=== PATIENT | female | born 1955 | race Caucasian/White ===

== ENCOUNTER 2018-12-13 15:32 | Inpatient (IN) | payer MEDICARE, OTHER ==
[~2018-12-13] VITALS: Ht 167.6 cm; Wt 118.8 kg
--- NOTE | 2018-12-13 15:45 | NUR ---
BIBPA FROM US RENAL DUE TO ALTERED MENTAL STATUS, PATIENT RESPONSIVE TO VERBAL AND TACTILE STIMULI. PATIENT WITH TRACHE, WITH A TRACHE MASK ON 2LPM AND SPO2 100%. HD CATHETER ON LEFT CHEST WALL. PATIENT NOTED WITH MULTIPLE WOUNDS. WILL CONTINUE TO MONITOR. AWAITING FOR MD FOR EVAL.
--- NOTE | 2018-12-13 16:27 | NUR ---
ATTEMPTED TO INSERT PIV MULTIPLE TIMES, UNSUCCESSFUL. INSERTED A STRAIGHT CATHETER, NO URINE OUTPUT. DR. RIVERA MADE AWARE. NO NEW ORDER AT THIS TIME.
[2018-12-13 16:29] LABS: BASOPHILS # (AUTO) 0.1 /CMM (0.0-0.2); BASOPHILS % (AUTO) 0.7 % (0.0-2.0); EOSINOPHILS % (AUTO) 8.6 % (0.0-6.0); HEMATOCRIT 30 % (33-45); HEMOGLOBIN 9.6 g/dL (11.5-14.8); LYMPHOCYTES # (AUTO) 2.1 /CMM (0.8-4.8); LYMPHOCYTES % (AUTO) 27.5 % (20.0-44.0); MEAN CORPUSCULAR HGB CONC 32 g/dl (31.0-36.0); MEAN CORPUSCULAR VOLUME 77 fL (82-100); MONOCYTES # (AUTO) 0.9 /CMM (0.1-1.30); NEUTROPHILS # (AUTO) 3.9 /CMM (1.8-8.9); NEUTROPHILS % (AUTO) 51.2 % (43.0-81.0); PLATELET COUNT (AUTO) 301 /CMM (150-450); RED BLOOD CELL COUNT(AUTO) 3.93 MIL/uL (4.0-5.2); WHITE BLOOD COUNT (AUTO) 7.5 K/uL (4.3-11.0)
[2018-12-13 16:38] LABS: CALCIUM, SERUM 10.1 mg/dL (8.5-10.1); CARBON DIOXIDE 28 mmol/L (21-32); CHLORIDE 90 mmol/L (98-107); GLUCOSE 168 mg/dL (74-106); POTASSIUM 4.2 mmol/L (3.5-5.1); SODIUM SERUM 128 mmol/L (136-145); UREA NITROGEN, BLOOD 77 mg/dL (7-18)
[2018-12-13 16:42] LABS: CREATININE 8.3 mg/dL (0.6-1.3)
[2018-12-13 16:52] LABS: ALANINE AMINOTRANSFERASE 33 U/L (12-78); ALBUMIN 3.8 g/dL (3.4-5.0); ALKALINE PHOSPHATASE 236 U/L (46-116); ASPARTATE AMINOTRANSFERASE 37 U/L (15-37); B-TYPE NATRIURETIC PEPTIDE 7173 PG/ML (0-125); BILIRUBIN,DIRECT 0.2 mg/dL (0.0-0.2); BILIRUBIN,TOTAL 0.5 mg/dL (0.2-1.0); LIPASE 246 U/L (73-393)
[2018-12-13] MEDS ORDERED: MIDAZOLAM HCL 2 MG/2ML VIAL ONE ×2 (16:55→18:40)
[2018-12-13] MEDS ORDERED: MIDAZOLAM HCL 5 MG/5ML VIAL IV ONE (17:00)
[2018-12-13] MEDS ORDERED: MIDAZOLAM HCL 2 MG/2ML VIAL IM ONE (17:00)
[2018-12-13] MEDS: MIDAZOLAM HCL 2 MG/2ML VIAL IM ONE ×2 (17:15→18:45)
--- NOTE | 2018-12-13 17:16 | NUR ---
PATIENT BROUGHT BACK BY [facility] COOKER S/P CT SCAN OF HEAD. PATIENT IS ASLEEP AT THIS TIME. WILL CONTINUE TO MONITOR.
[2018-12-13 17:26] LABS: THYROID STIMULATING HORMONE 1.057 uIU/mL (0.358-3.74)
--- NOTE | 2018-12-13 18:45 | NUR ---
PATIENT REMOVED TRACHE. RT CALLED. PATIENT CURRENTLY SATING 100% IN ROOM AIR. DR. RIVERA MADE AWARE AND ORDERED TO GIVE VERSED 2MG. ORDER CARRIED OUT.
--- NOTE | 2018-12-13 18:50 | NUR ---
RT CAME AND REPLACED TRACHE. PATIENT TOLERATED PROCEDURE. RECEIVED ORDER FROM DR. RIVERA TO APPLY ASHLEY. SOFT WRIST RESTRAINTS TO PREVENT PATIENT FROM PULLING OUT TRACHE AGAIN. ORDER NOTED AND CARRIED OUT.
--- NOTE | 2018-12-13 18:51 | NUR ---
CALLED [facility] POWERTRAIN DESIGN ENGINEER WAS PAGED.
[2018-12-13] MEDS ORDERED: Z GUARD REMEDY 2 OZ OINT TP PRN (20:00)
[2018-12-13] MEDS ORDERED: ACETAMINOPHEN 325 MG TABLET PO PRN (20:00)
[2018-12-13] MEDS ORDERED: MAG HYDROX/AL HYDROX/SIMETH 30 ML UDC PO PRN (20:00)
[2018-12-13] MEDS ORDERED: ENOXAPARIN SODIUM 30 MG/0.3 ML DISP.SYRIN SQ SCH (20:00)
[2018-12-13] MEDS ORDERED: HYDROCODONE/APAP 5/325MG 1 EACH TABLET PO PRN (20:00)
[2018-12-13] MEDS ORDERED: MAGNESIUM HYDROXIDE 30 ML UDC PO PRN (20:00)
[2018-12-13] MEDS ORDERED: ONDANSETRON HCL/PF 4 MG/2 ML VIAL IVP PRN (20:00)
--- NOTE | 2018-12-13 20:34 | NUR ---
REPORT GIVEN TO RICK LYN FOR SANTO
[2018-12-13 21:00] VITALS: BP 128/98
[2018-12-13] MEDS ORDERED: HEPARIN SODIUM, PORCINE 5000 UNITS/1 ML VIAL SQ SCH (21:00)
--- NOTE | 2018-12-13 21:30 | NUR ---
HOUSING GRANT ANALYST NOTE: RECEIVED PATIENT FROM ER, NO ACUTE DISTRESS NOTED. BREATHING EVEN AND UNLABORED, NO SOB NOTED. TRACH IN PLACE. PERMACATH TO LEFT CHEST WALL IN PLACE. NOTED WITH OLD AV SHUNT TO FELIPE WITH POSITIVE BRUIT. PATIENT WITH BILATERAL WRIST RESTRAINTS SINCE PATIENT TRYING TO PULL AT TRACH. G-TUBE IN PLACE, CLAMPED AT THIS TIME WITH NO RESIDUAL. BED LOCKED AND IN LOWEST POSITION, CALL LIGHT IN REACH. WILL CONTINUE TO MONITOR.
[2018-12-13] MEDS: HEPARIN SODIUM, PORCINE 5000 UNITS/1 ML VIAL SQ SCH (21:53)
[2018-12-14] VITALS: BP 122/76
[2018-12-14] MEDS ORDERED: CEFTRIAXONE 2 G in IV NS 0.9% 100 ML IV SCH (01:30)
[2018-12-14] MEDS ORDERED: AZITHROMYCIN 250 MG TABLET PO SCH (01:30)
[2018-12-14] MEDS: AZITHROMYCIN 250 MG TABLET GT SCH ×2 (02:24→20:46)
--- NOTE | 2018-12-14 03:00 | NUR ---
OPTICAL MODEL MAKER AND TESTER NOTE: PATIENT WITH ORDER FOR IV ROCEPHIN, INFORMED HUMAN RESOURCES TRAINEE NIC GOOD NP THAT PATIENT DOES NOT HAVE IV ACCESS. PATIENT HAS PERMACATH SITE FOR HD AND UNABLE TO ACCESS SITE PER CHARGE NURSE. SARAH LUCERO OK TO HAVE PATIENT TO HAVE MIDLINE. INFORMED NURSING MANAGER IT TRAINING FOR MIDLINE NURSE, THERE IS NO NURSE TONIGHT WILL INFORM DURING DAYSHIFT. IV ANTIBIOTIC NOT GIVEN AT THIS TIME. WILL CONTINUE TO MONITOR. Addendum: 12/14/18 at 0642 by RIKI CURTIS RN INFORMED THAT PATIENT MEDICATIONS FROM FACILITY WILL BE ENTERED IN AND TO BE REVIEWED ONCE ENTERED. AND WHAT GTUBE FEEDING PATIENT WAS ON AT FACILITY. SARAH LUCERO WILL LOOK AT [facility].
[2018-12-14 04:00] VITALS: BP 117/75
[2018-12-14] MEDS ORDERED: DOCU100T2 GT (04:17)
[2018-12-14] MEDS ORDERED: EPOE1VIA7 IJ (04:17)
[2018-12-14] MEDS ORDERED: FOLI1TAB16 GT (04:17)
[2018-12-14] MEDS ORDERED: FOLI0.8T2 GT (04:17)
[2018-12-14] MEDS ORDERED: ATOR40TA GT (04:17)
[2018-12-14] MEDS ORDERED: VITA0.4T5 GT (04:17)
[2018-12-14] MEDS ORDERED: PARI2CAP3 GT (04:17)
[2018-12-14] MEDS ORDERED: SENN-168 GT (04:17)
[2018-12-14] MEDS ORDERED: MIDO10TA GT (04:17)
[2018-12-14] MEDS ORDERED: ASPI-605 GT (04:17)
[2018-12-14] MEDS ORDERED: POLY90PO GT (04:17)
[2018-12-14] MEDS ORDERED: ACID1TAB12 GT (04:17)
[2018-12-14] MEDS ORDERED: ACET160S GT (04:17)
[2018-12-14] MEDS ORDERED: FAMO20TA8 GT (04:17)
[2018-12-14] MEDS ORDERED: VANC500V GT (04:18)
[2018-12-14] MEDS ORDERED: IPRA0.2S49 IH ×2 (04:48)
[2018-12-14] MEDS ORDERED: INSU100I4 SQ (04:48)
--- NOTE | 2018-12-14 06:20 | NUR ---
LUNCH WAGON OPERATOR NOTE: PATIENT RESTING IN BED, NO ACUTE DISTRESS NOTED. BREATHING EVEN AND UNLABORED, NO SOB NOTED. TRACH IN PLACE. PERMACATH TO LEFT CHEST WALL IN PLACE. G-TUBE IN PLACE. BED LOCKED AND IN LOWEST POSITION, CALL LIGHT IN REACH. WILL ENDORSE TO DAY NURSE TO CONTINUE WITH PLAN OF CARE.
--- NOTE | 2018-12-14 08:00 | NUR ---
ms rn received on bed, awake, non verbal patient on trach to aerosol, no sob noted, came in w/ dx of ams, hd patient, on g tube, bed bound w/o iv access, will monitor patient.
[2018-12-14 08:27] VITALS: BP 135/67
[2018-12-14] MEDS: PANTOPRAZOLE 40 MG VIAL IV SCH (10:23)
[2018-12-14] MEDS: HEPARIN SODIUM, PORCINE 5000 UNITS/1 ML VIAL SQ SCH ×2 (10:24→20:47)
--- NOTE | 2018-12-14 10:57 | NUR ---
WOUND CARE CONSULT: PT PRESENTS WITH MULTIPLE DRY ESCHARS AND CALLUSES TO BILATERAL FEET AND INCONTINENCE ASSOCIATED SKIN DAMAGE TO BILATERAL BUTTOCKS, PRESENT ON ADMISSION. PER DR BOYCE, PLASTIC SURGERY AND PODIATRY CONSULTS WERE MADE. RECOMMENDATIONS MADE FOR SKIN PROTECTION. DISCUSSED WITH NURSING STAFF INCLUDING MARKETING DIRECTOR. FIRST STEP LOW AIRLOSS MATTRESS ORDERED. WILL SEE PRN. IN AGREEMENT WITH PLAN OF CARE.
[2018-12-14] MEDS ORDERED: EPOETIN ALFA (10,000 UNIT) 10,000 UNIT/ML VIAL IV ONE (11:00)
--- NOTE | 2018-12-14 11:00 | NUR ---
MS RN WAS SEEN BY DR. BOYCE, REMINDED TO DO MEDICATION RECONCILIATION.
[2018-12-14] MEDS: CEFTRIAXONE 2 G in IV NS 0.9% 100 ML IV SCH (13:17)
[2018-12-14 13:28] LABS: BASOPHILS % (AUTO) 0.7 % (0.0-2.0); EOSINOPHILS % (AUTO) 7.4 % (0.0-6.0); HEMATOCRIT 25 % (33-45); LYMPHOCYTES # (AUTO) 1.6 /CMM (0.8-4.8); LYMPHOCYTES % (AUTO) 25.1 % (20.0-44.0); MEAN CORPUSCULAR HGB CONC 32 g/dl (31.0-36.0); MEAN CORPUSCULAR VOLUME 77 fL (82-100); MONOCYTES # (AUTO) 0.7 /CMM (0.1-1.30); MONOCYTES % (AUTO) 11.3 % (2.0-12.0); NEUTROPHILS # (AUTO) 3.6 /CMM (1.8-8.9); NEUTROPHILS % (AUTO) 55.5 % (43.0-81.0); PLATELET COUNT (AUTO) 212 /CMM (150-450); RED BLOOD CELL COUNT(AUTO) 3.24 MIL/uL (4.0-5.2); WHITE BLOOD COUNT (AUTO) 6.5 K/uL (4.3-11.0)
[2018-12-14 14:06] LABS: CALCIUM, SERUM 9.2 mg/dL (8.5-10.1); CREATININE 5.5 mg/dL (0.6-1.3); MAGNESIUM 2.7 mg/dL (1.8-2.4); PHOSPHORUS 3.9 mg/dL (2.5-4.9); POTASSIUM 3.5 mmol/L (3.5-5.1)
--- NOTE | 2018-12-14 14:30 | NUR ---
MS RICK HD DONE - 300ML OUTPUT.
[2018-12-14 15:05] LABS: THYROID STIMULATING HORMONE 1.013 uIU/mL (0.358-3.74)
[2018-12-14 16:11] VITALS: BP 129/81
[2018-12-14] MEDS ORDERED: NEPRO 1,000 ML BOTTLE GT PRN (18:30)
--- NOTE | 2018-12-14 19:00 | NUR ---
MS RN ON BED, NO DISTRESS NOTED,
--- NOTE | 2018-12-14 19:20 | NUR ---
RN Notes Received patient awake, HOB elevated with trach on cool aerosol at 5 LPM and tolerated well. Patient alert and oriented x1, noted constantly moving in bed. Bilateral soft wrist restraint noted with good circulation noted. Mid line on left upper forearm patent and intact. GT intact with ongoing GT feeding at 45ml/hr. and tolerated well. kept patient clean and dry. Isolation precaution observed. Will continue to monitor patient.
--- NOTE | 2018-12-14 21:55 | NUR ---
RN Notes Patient is restless and moaning, [place] 5/325 mg tab given and bed bath given. Will continue to monitor.
[2018-12-14 22:00] VITALS: BP 98/57
[2018-12-15] MEDS ORDERED: IPRATROPIUM NEB FS 0.5 MG/2.5 ML AMPUL.NEB IH PRN ×2 (01:30→04:58)
[2018-12-15] MEDS: IPRATROPIUM NEB FS 0.5 MG/2.5 ML AMPUL.NEB IH SCH ×4 (03:00→20:12)
[2018-12-15] MEDS ORDERED: INSULIN ASPART/LISPRO 100 UNIT/ML CARTRIDGE SQ SCH (06:00)
[2018-12-15] MEDS ORDERED: INSULIN ASPART 100 UNIT SQ SCH (06:00)
--- NOTE | 2018-12-15 06:00 | NUR ---
RN Notes Blood sugar checked 141 mg/dl, no coverage given because medicine is not available at this time.
--- NOTE | 2018-12-15 07:29 | NUR ---
MS RN OPENING NOTES Received patient awake in bed in no acute signs of distress. HOB elevated. Patient alert and oriented x1, confused and constantly moving in bed. Pt with trach on cool aerosol @ 5 LPM, tolerating well. Bilateral soft wrist restraint in placed. good circulation and peripheral pulses noted. Isolation precaution maintained. Mid line on FELIPE patent and intact. GT in place and patent, GT feeding of nephro at 45ml/hr in progress and tolerating well. all safety measures in place. bed in low locked position with SR up x3. call light in reach. Will continue to monitor patient accordingly.
--- NOTE | 2018-12-15 07:40 | NUR ---
RN Notes Patients stable overnight, afebrile. Kept pain at tolerable level.Kept patient clean and dry, turned and repositioned per protocol. Fall precaution observed. all needs attended. Will continue to monitor.
[2018-12-15] MEDS ORDERED: HYDROCODONE/APAP 5/325MG 1 EACH TABLET GT PRN (07:57)
[2018-12-15] MEDS ORDERED: MAG HYDROX/AL HYDROX/SIMETH 30 ML UDC GT PRN (07:57)
[2018-12-15] MEDS ORDERED: MAGNESIUM HYDROXIDE 30 ML UDC GT PRN (07:58)
[2018-12-15 08:00] VITALS: BP 155/76
[2018-12-15] MEDS ORDERED: ACETAMINOPHEN 650 MG/20.3 ML UDC GT PRN (08:00)
[2018-12-15] MEDS: MIDODRINE HCL (5MG) 5 MG TABLET GT SCH (09:00)
[2018-12-15] MEDS ORDERED: VANCOMYCIN 500 MG VIAL GT SCH (09:00)
[2018-12-15] MEDS: HEPARIN SODIUM, PORCINE 5000 UNITS/1 ML VIAL SQ SCH ×2 (09:34→21:48)
[2018-12-15] MEDS: POLYETHYLENE GLYCOL 3350 17 GM POWD.PACK GT SCH (09:37)
[2018-12-15] MEDS: PANTOPRAZOLE 40 MG VIAL IV SCH (09:39)
[2018-12-15] MEDS: VIT B CMPLX 3/FA/VIT C/BIOTIN 1 TAB TABLET GT SCH (09:40)
[2018-12-15] MEDS: ASPIRIN 81 MG TAB.CHEW GT SCH (09:42)
[2018-12-15] MEDS: ACIDOPHILUS/BULGARICUS 1 EACH TAB.CHEW GT SCH (09:42)
[2018-12-15] MEDS: DOCUSATE SODIUM LIQ 100 MG/10 ML UDC GT SCH ×2 (09:42→17:13)
[2018-12-15] MEDS: FOLIC ACID 1 MG TABLET GT SCH (09:42)
[2018-12-15] MEDS: FAMOTIDINE (20 MG) 20 MG TABLET GT SCH ×2 (09:42→17:13)
[2018-12-15] MEDS: VITAMIN B COMP W-C 1 TAB TABLET GT SCH (09:43)
[2018-12-15] MEDS: ACETAMINOPHEN 650 MG/20.3 ML UDC GT SCH (09:46)
[2018-12-15] MEDS ORDERED: VANCOMYCIN HCL 125 MG/2.5 ML ORAL.SUSP GT SCH (09:49)
[2018-12-15] MEDS ORDERED: DEXTROSE 50%-WATER 50 ML DISP.SYRIN IV PRN (12:30)
[2018-12-15] MEDS ORDERED: LORAZEPAM INJ 2 MG/ML VIAL IV ONE (12:30)
[2018-12-15] MEDS: CEFTRIAXONE 2 G in IV NS 0.9% 100 ML IV SCH (12:55)
[2018-12-15] MEDS ORDERED: EPOETIN ALFA (10,000 UNIT) 10,000 UNIT/ML VIAL SQ SCH (14:00)
[2018-12-15 14:53] LABS: BASOPHILS # (AUTO) 0.1 /CMM (0.0-0.2); BASOPHILS % (AUTO) 0.8 % (0.0-2.0); EOSINOPHILS % (AUTO) 8.2 % (0.0-6.0); HEMATOCRIT 31 % (33-45); HEMOGLOBIN 9.7 g/dL (11.5-14.8); LYMPHOCYTES % (AUTO) 24.4 % (20.0-44.0); MEAN CORPUSCULAR HGB CONC 31 g/dl (31.0-36.0); MEAN CORPUSCULAR VOLUME 78 fL (82-100); MONOCYTES # (AUTO) 1.2 /CMM (0.1-1.30); MONOCYTES % (AUTO) 14.4 % (2.0-12.0); NEUTROPHILS # (AUTO) 4.2 /CMM (1.8-8.9); NEUTROPHILS % (AUTO) 52.2 % (43.0-81.0); PLATELET COUNT (AUTO) 286 /CMM (150-450); RED BLOOD CELL COUNT(AUTO) 4.02 MIL/uL (4.0-5.2); WHITE BLOOD COUNT (AUTO) 8.1 K/uL (4.3-11.0)
[2018-12-15 15:32] LABS: CALCIUM, SERUM 9.8 mg/dL (8.5-10.1)
[2018-12-15] MEDS: VANCOMYCIN HCL 125 MG/2.5 ML ORAL.SUSP GT SCH (15:39)
[2018-12-15 15:47] LABS: CREATININE 7.7 mg/dL (0.6-1.3)
[2018-12-15 16:00] VITALS: BP 117/89
--- NOTE | 2018-12-15 16:25 | NUR ---
RN NOTES CALLED [facility] AT [phone] TO VERIFY EPOGEN ORDER. SPOKE TO NURSE LOAD TEST MECHANIC VIJAY AND SAID THAT PT IS TAKING EPOGEN 10,000 UN 3X A WEEK ON , WEDNESDAY AND SAT. DOSAGE RELAYED TO PHARMACIST COCO.
[2018-12-15] MEDS: ATORVASTATIN 40 MG TABLET GT SCH (17:13)
[2018-12-15] MEDS: INSULIN ASPART/LISPRO 100 UNIT/ML CARTRIDGE SQ PRN ×2 (17:50→21:53)
[2018-12-15] MEDS: BLOOD SUGAR DIAGNOSTIC 1 EACH STRIP IN SCH ×2 (17:51→21:49)
[2018-12-15] MEDS: NEPRO 1,000 ML BOTTLE GT PRN (18:34)
--- NOTE | 2018-12-15 18:48 | NUR ---
RN NOTES PATIENT BLOOD TRANSFUSION FINISHED WITH NO ADVERSE REACTIONS NOTED. AT BEDSIDE AND AWARE.COMPUTER NOT LETTING TO END BLOOD TRANSFUSION. POST BLOOD TRANSFUSION V/S: BP 122/79, R 16, P 96 AND T 98f. WILL CONTINUE TO MONITOR.
--- NOTE | 2018-12-15 19:42 | NUR ---
MS RN CLOSING NOTES Patient in bed awake and lying at modertae high backrest psoition. A/O x1, confused and constantly moving in bed. Bilateral soft wrist restraint in placed, good circulation and peripheral pulses noted. Isolation precaution maintained. Pt with trach on cool aerosol @ 5 LPM, tolerating well. Mid line on FELIPE patent and intact. LCW permacath in place. received call from HD nurse that she will come to HD patient tonight. GT in place and patent, GT feeding of Nephro @ 45ml/hr in progress and tolerating well. Joyner in place and actively draining clear yellow urine to bedside urinary bag, joyner care done. All safety measures in place. Bed in low locked position with SR up x3. Call light in reach. Endorsed to awake overnight monitor nurse for tarun..
--- NOTE | 2018-12-15 19:43 | NUR ---
RN Notes Received patient awake, HOB elevated with trach on cool aerosol at 5 LPM and tolerated well. Patient is verbal with confusion, oriented x1. Bilateral soft wrist restraint with good circulation noted. Mid line on left upper forearm patent and intact. GT intact with ongoing GT feeding at 45ml/hr and tolerated well. Patient constantly moving in bed, safety measures and fall precaution in place. Isolation precaution observed. Will continue to monitor patient.
[2018-12-15 20:39] VITALS: BP 133/69
[2018-12-15] MEDS: MUPIROCIN OINT 2% 22 GM TUBE SCH (21:00)
[2018-12-15] MEDS: AZITHROMYCIN 250 MG TABLET GT SCH (21:45)
[2018-12-15] MEDS: SENNOSIDES 8.6 MG TABLET GT SCH (21:46)
--- NOTE | 2018-12-15 21:59 | NUR ---
RN Notes Patient is restless, moaning and verbalizing her back hurts. [place] 5/325 mg tab given via GT. Will continue to monitor.
[2018-12-15 22:00] VITALS: BP 133/69
[2018-12-16] MEDS: VANCOMYCIN HCL 125 MG/2.5 ML ORAL.SUSP GT SCH ×4 (00:11→17:06)
[2018-12-16] MEDS: IPRATROPIUM NEB FS 0.5 MG/2.5 ML AMPUL.NEB IH SCH ×4 (01:34→20:03)
[2018-12-16] MEDS: BLOOD SUGAR DIAGNOSTIC 1 EACH STRIP IN SCH ×4 (06:56→21:28)
[2018-12-16] MEDS: INSULIN ASPART/LISPRO 100 UNIT/ML CARTRIDGE SQ PRN ×3 (06:58→16:58)
--- NOTE | 2018-12-16 07:30 | NUR ---
MS RN OPENING NOTES RECEIVED PATIENT IN STABLE CONDITION. IN NO APPARENT DISTRESS. BEDSIDE RAILS ARE UPX2. BED IS LOCKED AND LOWERED. CALL LIGHT IS WITHIN REACH. IV LINE IS INTACT AND PATENT. WILL CONTINUE TO MONITOR PATIENT.
--- NOTE | 2018-12-16 07:37 | NUR ---
RN Notes Patient slept on and off overnight. Patient is more verbal and alert .Vital signs stable, afebrile. Had dialysis with 500 ml output and patient tolerated well. Turned and repositioned per protocol. Kept patient clean and dry. All needs attended. Endorsed to morning RN for continuity of care.
[2018-12-16 08:00] VITALS: BP 141/87
[2018-12-16] MEDS: MUPIROCIN OINT 2% 22 GM TUBE SCH ×2 (09:00→21:47)
[2018-12-16] MEDS: MIDODRINE HCL (5MG) 5 MG TABLET GT SCH (09:29)
[2018-12-16] MEDS: ASPIRIN 81 MG TAB.CHEW GT SCH (09:30)
[2018-12-16] MEDS: DOCUSATE SODIUM LIQ 100 MG/10 ML UDC GT SCH ×2 (09:30→16:54)
[2018-12-16] MEDS: PANTOPRAZOLE 40 MG/PACK PACK GT SCH (09:30)
[2018-12-16] MEDS: ACIDOPHILUS/BULGARICUS 1 EACH TAB.CHEW GT SCH (09:30)
[2018-12-16] MEDS: ACETAMINOPHEN 650 MG/20.3 ML UDC GT SCH (09:30)
[2018-12-16] MEDS: FOLIC ACID 1 MG TABLET GT SCH (09:30)
[2018-12-16] MEDS: VITAMIN B COMP W-C 1 TAB TABLET GT SCH (09:31)
[2018-12-16] MEDS: VIT B CMPLX 3/FA/VIT C/BIOTIN 1 TAB TABLET GT SCH (09:31)
[2018-12-16] MEDS: POLYETHYLENE GLYCOL 3350 17 GM POWD.PACK GT SCH (09:31)
[2018-12-16] MEDS: HEPARIN SODIUM, PORCINE 5000 UNITS/1 ML VIAL SQ SCH ×2 (09:32→21:23)
--- NOTE | 2018-12-16 10:11 | NUR ---
CALLED PHARMACY TO PROVIDE BACTROBAN. WILL ADMINISTER WHEN MEDICATION IS AVAILABLE.
[2018-12-16 11:29] LABS: BASOPHILS # (AUTO) 0.1 /CMM (0.0-0.2); HEMATOCRIT 28 % (33-45); HEMOGLOBIN 9.1 g/dL (11.5-14.8); LYMPHOCYTES # (AUTO) 1.4 /CMM (0.8-4.8); LYMPHOCYTES % (AUTO) 18.7 % (20.0-44.0); MEAN CORPUSCULAR HGB CONC 32 g/dl (31.0-36.0); MEAN CORPUSCULAR VOLUME 76 fL (82-100); MONOCYTES # (AUTO) 0.9 /CMM (0.1-1.30); MONOCYTES % (AUTO) 11.7 % (2.0-12.0); NEUTROPHILS # (AUTO) 4.7 /CMM (1.8-8.9); NEUTROPHILS % (AUTO) 61.6 % (43.0-81.0); PLATELET COUNT (AUTO) 247 /CMM (150-450); RED BLOOD CELL COUNT(AUTO) 3.73 MIL/uL (4.0-5.2); WHITE BLOOD COUNT (AUTO) 7.7 K/uL (4.3-11.0)
[2018-12-16] MEDS ORDERED: PARICALCITOL 2 MCG GT SCH (11:30)
[2018-12-16 11:51] LABS: CALCIUM, SERUM 9.6 mg/dL (8.5-10.1); CREATININE 5.7 mg/dL (0.6-1.3); MAGNESIUM 2.7 mg/dL (1.8-2.4); PHOSPHORUS 4.2 mg/dL (2.5-4.9); POTASSIUM 3.6 mmol/L (3.5-5.1)
[2018-12-16] MEDS: CEFTRIAXONE 2 G in IV NS 0.9% 100 ML IV SCH (12:01)
[2018-12-16 16:00] VITALS: BP 119/49
[2018-12-16] MEDS: ATORVASTATIN 40 MG TABLET GT SCH (17:06)
--- NOTE | 2018-12-16 18:03 | NUR ---
MS RN CLOSING NOTES PATIENT IS IN STABLE CONDITION. IN NO APPARENT DISTRESS. BEDSIDE RAILS ARE UPX2. BED IS LOCKED AND LOWERED. CALL LIGHT IS WITHIN REACH. IV LINE IS INTACT AND PATENT. WILL ENDORSE CARE TO DREDGE HAND NURSE FOR SANTO.
--- NOTE | 2018-12-16 19:50 | NUR ---
MS RN NOTE: PATIENT RESTING IN BED, NO ACUTE DISTRESS NOTED. BREATHING EVEN AND UNLABORED, NO SOB NOTED. TRACH IN PLACE WITH COOL AEROSOL. PERMACATH TO LEFT CHEST WALL IN PLACE. MIDLINE TO FELIPE IN PLACE. G-TUBE IN PLACE, WITH NO RESIDUAL INFUSING NEPHRO 45ML/HR, HOB ELEVATED. ISOLATION PRECAUTIONS OBSERVED. BED LOCKED AND IN LOWEST POSITION, CALL LIGHT IN REACH.
[2018-12-16 20:00] VITALS: BP 139/71
[2018-12-16] MEDS: SENNOSIDES 8.6 MG TABLET GT SCH (21:23)
[2018-12-16] MEDS: AZITHROMYCIN 250 MG TABLET GT SCH (21:23)
--- NOTE | 2018-12-16 21:45 | NUR ---
MS RN NOTE: PATIENT BLOOD SUGAR LEVEL 97 MG/DL, NO INSULIN NEEDED PER SLIDING SCALE. NO S/S OF HYPER/HYPOGLYCEMIA NOTED. PATIENT ON G-TUBE FEEDING. WILL CONTINUE TO MONITOR.
[2018-12-17] MEDS: VANCOMYCIN HCL 125 MG/2.5 ML ORAL.SUSP GT SCH ×3 (00:09→11:06)
[2018-12-17] MEDS: NEPRO 1,000 ML BOTTLE GT PRN (00:46)
[2018-12-17] MEDS: IPRATROPIUM NEB FS 0.5 MG/2.5 ML AMPUL.NEB IH SCH ×3 (01:11→13:07)
--- NOTE | 2018-12-17 06:25 | NUR ---
MS RN NOTE: PATIENT RESTING IN BED, NO ACUTE DISTRESS NOTED. BREATHING EVEN AND UNLABORED, NO SOB NOTED. TRACH IN PLACE WITH COOL AEROSOL. PERMACATH TO LEFT CHEST WALL IN PLACE. MIDLINE TO FELIPE IN PLACE. G-TUBE IN PLACE, WITH NO RESIDUAL INFUSING NEPHRO 45ML/HR, HOB ELEVATED. PATIENT BLOOD SUGAR LEVEL 135MG/DL, TO RECEIVE 2 UNITS OF INSULIN PER SLIDING SCALE. ISOLATION PRECAUTIONS OBSERVED. BED LOCKED AND IN LOWEST POSITION, CALL LIGHT IN REACH. WILL ENDORSE TO DAY NURSE TO CONTINUE PLAN OF CARE.
[2018-12-17] MEDS: BLOOD SUGAR DIAGNOSTIC 1 EACH STRIP IN SCH ×2 (06:36→11:06)
[2018-12-17] MEDS: INSULIN ASPART/LISPRO 100 UNIT/ML CARTRIDGE SQ PRN ×2 (06:39→11:12)
[2018-12-17 08:00] VITALS: BP 126/62
[2018-12-17 08:37] VITALS: BP 126/62
[2018-12-17] MEDS: ASPIRIN 81 MG TAB.CHEW GT SCH (08:37)
[2018-12-17] MEDS: MIDODRINE HCL (5MG) 5 MG TABLET GT SCH (08:37)
[2018-12-17] MEDS: FOLIC ACID 1 MG TABLET GT SCH (08:38)
[2018-12-17] MEDS: VITAMIN B COMP W-C 1 TAB TABLET GT SCH (08:38)
[2018-12-17] MEDS: DOCUSATE SODIUM LIQ 100 MG/10 ML UDC GT SCH (08:38)
[2018-12-17] MEDS: ACETAMINOPHEN 650 MG/20.3 ML UDC GT SCH (08:38)
[2018-12-17] MEDS: ACIDOPHILUS/BULGARICUS 1 EACH TAB.CHEW GT SCH (08:38)
[2018-12-17] MEDS: PANTOPRAZOLE 40 MG/PACK PACK GT SCH (08:38)
[2018-12-17] MEDS: VIT B CMPLX 3/FA/VIT C/BIOTIN 1 TAB TABLET GT SCH (08:38)
[2018-12-17] MEDS: HEPARIN SODIUM, PORCINE 5000 UNITS/1 ML VIAL SQ SCH (08:43)
[2018-12-17] MEDS: MUPIROCIN OINT 2% 22 GM TUBE SCH (08:56)
[2018-12-17] MEDS: POLYETHYLENE GLYCOL 3350 17 GM POWD.PACK GT SCH (08:57)
--- NOTE | 2018-12-17 08:58 | NUR ---
PATIENT HAD TWO BOWEL MOVEMENTS YESTERDAY. NON ADMINISTERED MIRALAX.
[2018-12-17] MEDS ORDERED: EPOETIN ALFA (10,000 UNIT) 10,000 UNIT/ML VIAL SQ SCH (14:00)
--- NOTE | 2018-12-17 15:56 | NUR ---
MS TAX ANALYST NOTES PATIENT DISCHARGED IN STABLE CONDITION. IN NO APPARENT DISTRESS. EXITCARE WAS SIGNED AND PROVIDED TO [facility]. BELONGINGS WERE CHECKED. IV LINE AND ID BAND WERE REMOVED. ALL NEEDS WERE MET. PATIENT WAS ESCORTED OUT OF THE FACILITY VIA GURNEY BY EMT. REPORT WAS GIVEN TO ZACHERY CABRERA AT [facility] [phone].
== END 2018-12-17 16:00 | DRG 193 ==
LOC: ER 15:36 → TELE 20:00 → MED 12-14 14:22
PROVIDERS: ADMIT Registered Nurse; ATTEND Internal Medicine
PROC: 05H633Z Insertion of Infusion Device into Left Subclavian Vein, Percutaneous Approach (ICD-10-PCS; principal; 2018-12-14)
PROC: B547ZZA Ultrasonography of Left Subclavian Vein, Guidance (ICD-10-PCS; 2018-12-14)
PROC: 5A1D70Z Performance of Urinary Filtration, Intermittent, Less than 6 Hours Per Day (ICD-10-PCS; 2018-12-14)
PROC: 5A1D70Z Performance of Urinary Filtration, Intermittent, Less than 6 Hours Per Day (ICD-10-PCS; 2018-12-15)
PROC: 5A1D70Z Performance of Urinary Filtration, Intermittent, Less than 6 Hours Per Day (ICD-10-PCS; 2018-12-16)
DX: J15.9 Unspecified bacterial pneumonia (principal); G92 Toxic encephalopathy; J96.20 Acute and chronic respiratory failure, unspecified whether with hypoxia or hypercapnia; R53.2 Functional quadriplegia; N18.6 End stage renal disease; I13.11 Hypertensive heart and chronic kidney disease without heart failure, with stage 5 chronic kidney disease, or end stage renal disease; E87.1 Hypo-osmolality and hyponatremia; Z68.41 Body mass index [BMI] 40.0-44.9, adult; D63.1 Anemia in chronic kidney disease; E66.01 Morbid (severe) obesity due to excess calories; E87.70 Fluid overload, unspecified; R13.10 Dysphagia, unspecified; Z93.0 Tracheostomy status; Z93.1 Gastrostomy status; Z99.2 Dependence on renal dialysis; R74.8 Abnormal levels of other serum enzymes; L89.520 Pressure ulcer of left ankle, unstageable; L97.529 Non-pressure chronic ulcer of other part of left foot with unspecified severity; E83.9 Disorder of mineral metabolism, unspecified; I73.9 Peripheral vascular disease, unspecified; R73.9 Hyperglycemia, unspecified
CPT/HCPCS: 31720; 36415; 36569; 70450-TC; 71045-TC; 80048-TC; 80061-TC; 80076-TC; 82550-TC; 82962-TC; 83605-TC; 83690-TC; 83735-TC; 83880; 84100-TC; 84443-TC; 84484-TC; 85025-TC; 85730-TC; 86850-TC; 87040-TC; 87070-TC; 87081-TC; 90935-TC; 93307-TC; 94640-TC; 94799-TC; A4623; A6403; C9113; G0378; J0696; J0885; J1644; J1815; J2060; J2250; J7030